=== PATIENT | female | born 1995 | race Caucasian/White ===

== ENCOUNTER 2017-03-02 10:39 | Emergency (ER) | payer OTHER, BC ==
[~2017-03-02] VITALS: Ht 172.7 cm; Wt 63.5 kg
[2017-03-02 10:44] VITALS: BP 122/79; PULSE 110; RESP 17; TEMP 96.9; O2SAT 95
[2017-03-02] MEDS ORDERED: KETOROLAC TROMETHAMINE 60 MG/2 ML VIAL IM ONE (11:30)
[2017-03-02] MEDS ORDERED: DEXAMETHASONE SOD PHOSPHATE 10 MG/ML VIAL IVP ONE (11:30)
[2017-03-02 12:05] VITALS: BP 129/76; PULSE 80; RESP 20; TEMP 98.2; O2SAT 100
== END 2017-03-02 12:05 | disposition home or self-care (01) ==
LOC: SED 10:39
DX: J03.90 Acute tonsillitis, unspecified (principal); R03.0 Elevated blood-pressure reading, without diagnosis of hypertension
CPT/HCPCS: 36415; 86403; 87081; 96372; 99284; J1100; J1885

== ENCOUNTER 2017-07-01 15:47 | Emergency (ER) | payer BC, OTHER ==
[~2017-07-01] VITALS: Ht 172.7 cm; Wt 63.5 kg
[2017-07-01 15:47] VITALS: BP_SYST 114
[2017-07-01] MEDS ORDERED: PROCHLORPERAZINE EDISYLATE 10 MG/2 ML VIAL IVP ONE (16:00)
[2017-07-01] MEDS ORDERED: KETOROLAC TROMETHAMINE 30 MG VIAL IVP ONE (16:00)
[2017-07-01] MEDS ORDERED: ACETAMINOPHEN 500 MG TABLET PO ONE (16:00)
[2017-07-01] MEDS ORDERED: NACL 0.9% 1,000 ML IV ONE (16:00)
[2017-07-01 17:13] LABS: BILIRUBIN,URINE NEGATIVE (NEGATIVE); BLOOD, URINE 2+ (NEGATIVE); CLARITY/URINE SL HAZY (CLEAR); COLOR,URINE YELLOW (YELLOW); GLUCOSE,URINE NEGATIVE (NEGATIVE); KETONES,URINE TRACE (NEGATIVE); LEUKOCYTE ESTERASE ,URINE NEGATIVE (NEGATIVE); NITRITE, URINE NEGATIVE (NEGATIVE); PROTEIN URINE NEGATIVE (NEGATIVE); UROBILINOGEN,URINE 0.2 (0.2-1.0)
[2017-07-01] MEDS ORDERED: NACL 0.9% 500 ML IV ONE (17:45)
[2017-07-01] MEDS ORDERED: IBUPROFEN 600 MG TABLET PO ONE (17:45)
[2017-07-01 18:00] VITALS: BP_SYST 116
[2017-07-01 18:14] LABS: BACTERIA,URINE FEW /HPF (None Seen); MUCUS,URINE 3+ /LPF (None Seen); WBC,URINE 0-3 /HPF (0-3)
== END 2017-07-01 18:00 | disposition home or self-care (01) ==
LOC: SED 15:47
DX: K52.9 Noninfective gastroenteritis and colitis, unspecified (principal); F17.210 Nicotine dependence, cigarettes, uncomplicated; Z71.6 Tobacco abuse counseling
CPT/HCPCS: 81000; 81025; 96361; 96374; 96375; 99284; J0780; J1885; J7030

== ENCOUNTER 2017-08-06 12:26 | Emergency (ER) | payer SELFPAY ==
[~2017-08-06] VITALS: Ht 172.7 cm; Wt 59.0 kg
[2017-08-06 12:31] VITALS: BP_SYST 121
[2017-08-06 13:11] LABS: BILIRUBIN,URINE NEGATIVE (NEGATIVE); BLOOD, URINE 2+ (NEGATIVE); CLARITY/URINE CLEAR (CLEAR); COLOR,URINE YELLOW (YELLOW); GLUCOSE,URINE NEGATIVE (NEGATIVE); KETONES,URINE NEGATIVE (NEGATIVE); LEUKOCYTE ESTERASE ,URINE NEGATIVE (NEGATIVE); NITRITE, URINE NEGATIVE (NEGATIVE); PROTEIN URINE NEGATIVE (NEGATIVE); UROBILINOGEN,URINE 0.2 (0.2-1.0)
[2017-08-06 13:16] LABS: BACTERIA,URINE FEW /HPF (None Seen); MUCUS,URINE None Seen /LPF (None Seen); WBC,URINE 0-3 /HPF (0-3)
[2017-08-06 13:27] LABS: BASOPHILS % (AUTO) 0.5 % (0.0-2.0); EOSINOPHILS % (AUTO) 0.8 % (0.0-4.0); HEMATOCRIT 38.9 % (36-48); HEMOGLOBIN 12.8 g/dL (12.0-16.0); LYMPHOCYTES # (AUTO) 2.2 K/uL (1.0-5.5); MEAN CORPUSCULAR HEMOGLOBIN 28 pg (27-31); MEAN CORPUSCULAR HGB CONC 33 % (32-36); MEAN CORPUSCULAR VOLUME 86 fL (79.0-98.0); MONOCYTES # (AUTO) 0.4 K/uL (0.0-1.0); MONOCYTES % (AUTO) 7.9 % (1.7-9.3); NEUTROPHILS # (AUTO) 2.5 K/uL (1.8-7.7); NEUTROPHILS % (AUTO) 48.8 % (40.0-70.0); PLATELET COUNT (AUTO) 226 K/uL (130-430); RED BLOOD CELL COUNT(AUTO) 4.55 MIL/uL (4.2-6.2); WHITE BLOOD COUNT (AUTO) 5.1 K/uL (4.5-11.0)
[2017-08-06 13:39] LABS: CALCIUM 10.3 mg/dL (8.4-11.0); CREATININE 0.67 mg/dL (0.55-1.30)
[2017-08-06 13:45] LABS: ALBUMIN 3.9 g/dL (3.4-4.8); TOTAL BILIRUBIN 0.4 mg/dL (0.0-1.0)
[2017-08-06] MEDS ORDERED: NA PHOS,M-B/NA PHOS,DI-BA 118 ML (FLEET ENEMA) RC ONE (14:00)
[2017-08-06 16:36] VITALS: BP_SYST 125
== END 2017-08-06 16:36 | disposition home or self-care (01) ==
LOC: SED 12:26
DX: K59.00 Constipation, unspecified (principal)
CPT/HCPCS: 36415; 80053; 81000-TC; 81025; 83690-TC; 85025; 99285